=== PATIENT | female | born 1985 ===

== ENCOUNTER 2018-10-16 09:01 | Outpatient (CLI) | payer OTHER | END 2018-10-16 09:02 | disposition home or self-care (01) | LOC: C.LAB 09:01 | DX: Z00.01 Encounter for general adult medical examination with abnormal findings (principal) ==

== ENCOUNTER 2018-11-06 08:44 | Outpatient (CLI) | payer OTHER | END 2018-11-06 08:45 | disposition home or self-care (01) | LOC: C.LAB 08:44 | DX: R39.81 Functional urinary incontinence (principal) ==

== ENCOUNTER 2018-11-06 08:51 | Outpatient (CLI) | payer OTHER | END 2018-11-06 08:52 | disposition home or self-care (01) | LOC: C.LAB 08:51 | DX: Z30.09 Encounter for other general counseling and advice on contraception (principal) ==